=== PATIENT | female | born 1980 | race Caucasian/White ===

== ENCOUNTER 2019-03-16 12:05 | Day surgery (SDC) | payer MEDICARE, OTHER ==
[2019-03-15 13:52] VITALS: BMI 23.2
[2019-03-16 13:38] LABS: Calc. Creatinine Clearance 123 mL/min (70-130); Estimated GFR-MDRD Greater than 90
--- NOTE | 2019-03-16 15:09 | MRI ---
MRI BRAIN WITH AND WITHOUT IV CONTRAST: HISTORY: Vascular headache COMPARISON: 05/23/2012 FINDINGS: Changes of cortical atrophy are again seen. The extensive area of encephalomalacia and gliosis involv ing the left posterior frontal and portions of the left temporal and left occipital lobes are stable, compatible with previous brain injury. Secondary atrophic changes in the left thalamus and le ft cerebral peduncle compatible with Wallerian degeneration are again seen. No restricted diffusion is seen. No evidence of acute infarct, hemorrhage, mass, midline shift or abn ormal extra-axial fluid collections is noted. No abnormal postcontrast enhancement is seen. Foci of T2 prolongation in the periventricular white matter are consistent with chronic small vessel ischemic disease. There is a mucous retention cyst versus polyp in the right maxillary sinus. There is fluid in the mastoid air cells. IMPRESSION: No evidence of acute intracranial process or mass.
== END 2019-03-16 15:58 | disposition home or self-care (01) ==
LOC: SDC/OP 12:05
PROVIDERS: ATTEND Psychiatry & Neurology Neurology
DX: G44.1 Vascular headache, not elsewhere classified (principal); I10 Essential (primary) hypertension; I69.351 Hemiplegia and hemiparesis following cerebral infarction affecting right dominant side; F17.210 Nicotine dependence, cigarettes, uncomplicated; F41.9 Anxiety disorder, unspecified; Z79.899 Other long term (current) drug therapy
CPT/HCPCS: 36415; 70553; 82565